=== PATIENT | male | born 1985 | race Caucasian/White ===

== ENCOUNTER 2019-01-06 14:21 | Emergency (ER) | payer OTHER ==
[2019-01-06 14:53] VITALS: BP 109/77
--- NOTE | 2019-01-06 15:32 | UC ---
Altered Mental Status HPI - HPI Summary HPI Summary: 33 year old male with h/o TBI this past May, h/o substance abuse (clean since 02/2018 per patient and fiance) and mental health disorder who presents due to a change in his mental status, more confusion, irritable and not acting his usual self. He states he did fall two days ago down two stairs, did hit his head above his left eye. Denies headache nor focal deficits. - History Of Current Complaint Chief Complaint: UCGeneralIllness Stated Complaint: HEADACHE,CONFUSION x8 MONTHS Time Seen by Provider: 01/06/19 15:10 Hx Obtained From: Patient, Family/[employer]uel [employer] Se[employer] Tester - paige Hx From Patient Unobtainable Due To: Altered Mental Status Onset/Duration: Sudden Onset Timing: Constant Pain Intensity: 0 Character: Confusion, Agitation, Lethargy Aggravating Factor(s): Other - s/p fall two days ago. Uncertain if he had head trauma. Alleviating Factor(s): Nothing Associated Signs And Symptoms: Positive: Negative - Risk Factors Cardiac Risk Factors: Negative CVA Risk Factor: Negative - Allergies/Home Medications Allergies/Adverse Reactions: Allergies Allergy/AdvReac Type Severity Reaction Status Date / Time No Known Allergies Allergy Verified 01/06/19 14:53 Home Medications: Home Medications Fluoxetine HCl [Fluoxetine Hydrochloride] 80 mg PO DAILY 01/06/19 [History Confirmed 01/06/19] Promethazine HCl 25 mg PO TID 01/06/19 [History Confirmed 01/06/19] cloNIDine TAB* [Catapres 0.1 MG TAB*] 0.2 mg PO Q4HR PRN 01/06/19 [History Confirmed 01/06/19] lamoTRIgine TAB(*) [LaMICtal TAB(*)] 75 mg PO TID 01/06/19 [History Confirmed ] traZODone TAB* [Desyrel TAB*] 100 mg PO BEDTIME 01/06/19 [History Confirmed 07/26] PMH/Surg Hx/FS Hx/Imm Hx Previously Healthy: No - being evaluated for TBI by neurologist Neurological History: Seizures, Other - Traumatic brain injury Psychological History: Anxiety, Depression - Surgical History Surgical History: None - Family History Known Family History: Positive: Non-Contributory - Social History Alcohol Use: None Alcohol Amount: Recovering alcoholic Substance Use Type: None Substance Use Comment - Amount & Last Used: 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 and benzo Smoking Status (MU): Heavy Every Day Tobacco Smoker Type: Cigarettes Amount Used/How Often: 1/2-1 ppd Length of Time of Smoking/Using Tobacco: since age 13 Have You Smoked in the Last Year: Yes Review of Systems All Other Systems Reviewed And Are Negative: Yes Constitutional: Positive: Other - confusion Skin: Positive: Negative Eyes: Positive: Negative ENT: Positive: Negative Respiratory: Positive: Negative Cardiovascular: Positive: Negative Gastrointestinal: Positive: Negative Genitourinary: Positive: Negative Motor: Positive: Negative Neurovascular: Positive: Negative Musculoskeletal: Positive: Negative Neurological: Positive: Other - lethargic, confusion. Psychological: Positive: Anxious Is Patient Immunocompromised?: No Physical Exam Triage Information Reviewed: Yes Completion Of Physical Exam Limited Due To: Altered Mental Status Appearance: Other: - Irritable. Vital Signs: Initial Vital Signs Temp 97.9 F 01/06/19 14:38 Pulse 86 01/06/19 14:38 Resp 16 01/06/19 14:38 BP 109/77 01/06/19 14:38 Pulse Ox 99 01/06/19 14:38 Vital Signs Reviewed: Yes Eye Exam: Normal ENT Exam: Normal Neck: Positive: Supple, Nontender, No Lymphadenopathy Respiratory: Positive: Lungs clear, Normal breath sounds, No respiratory distress Cardiovascular: Positive: RRR, No Murmur, Pulses Normal Abdomen Description: Positive: Nontender, Soft Musculoskeletal: Positive: Strength Intact, ROM Intact, No Edema Psychological: Positive: Other: - Confusion Skin Exam: Normal AMS Course/Dx - Course Course Of Treatment: 33 year old male with altered mental status that warrants further evaluation in the ED. Transportation via ambulance was offered, they declined. He understand importance of further evaluation in the ED. Called and provided report to [facility] that patient is on his was via their own transportation for further evaluation of altered mental status with recent head injury. - Differential Dx/Clinical Impression Differential Diagnosis/HQI/PQRI: Intracranial Bleed Provider Diagnosis: Altered mental status, unspecified Discharge - Sign-Out/Discharge Documenting (check all that apply): Patient Departure All imaging exams completed and their final reports reviewed: No Studies - Discharge Plan Condition: Guarded Disposition: HOME-RECOMMEND TO ED Patient Education Materials: Altered Mental Status (ED) Referrals: Ofelia Hannah MD [Primary Care Provider] - Additional Instructions: Proceed directly to the Emergency Department for further evaluation due to altered mental status. - Billing Disposition and Condition Condition: GUARDED Disposition: Home-Recommend to ED
== END 2019-01-06 15:45 | disposition home health service (06) ==
LOC: UCCORT 14:21
DX: R41.82 Altered mental status, unspecified (principal); F41.9 Anxiety disorder, unspecified; F32.9 Major depressive disorder, single episode, unspecified; R56.9 Unspecified convulsions; Z87.820 Personal history of traumatic brain injury; F17.210 Nicotine dependence, cigarettes, uncomplicated
CPT/HCPCS: 99211; G0463